=== PATIENT | male | born 2000 | race Caucasian/White ===

== ENCOUNTER 2024-02-06 17:38 | Emergency (ER) | payer SELFPAY ==
[~2024-02-06] VITALS: Ht 180.3 cm; Wt 95.5 kg
[2024-02-06 18:05] VITALS: TEMP 98.4
[2024-02-06] MEDS ORDERED: BACTRIM DS 8001 TAB PO (20:36)
[2024-02-06] MEDS ORDERED: Home HYDROcodone/Acetaminophen 5/325 MG #4 TABS/PACK PO ONE (20:45)
[2024-02-06 20:50] VITALS: BP 158/99; PULSE 88
== END 2024-02-06 20:50 | disposition home or self-care (01) ==
LOC: COL.ER 17:38
DX: N45.1 Epididymitis (principal)

== ENCOUNTER → 2024-02-07 | Outpatient (CLI) | payer BC ==
[~2024-02-07] MED LIST: BACTRIM DS 8001 TAB PO
== END ==
LOC: COL.RAD 07:49
DX: N45.1 Epididymitis (principal)